=== PATIENT | female | born 1970 | race African-American/Black ===

== ENCOUNTER 2018-05-03 11:41 | Emergency (ER) | payer OTHER, SELFPAY ==
[2018-05-03] MEDS ORDERED: Ketorolac Tromethamine 30 MG/ML VIAL ONE (12:19)
[2018-05-03 12:33] LABS: #Basophils 0.1 thou/uL (0.0-0.2); #Eosinphils 0.1 thou/uL (0.0-0.7); #Lymphocytes 2.5 thou/uL (1.20-3.40); #Monocytes 0.6 thou/uL (0.11-0.59); #Neutrophils 5.4 thou/uL (1.40-6.50); %Basophils 0.7 % (0.0-1.0); %Lymphocytes 28.6 % (21.0-51.0); %Monocytes 7.4 % (0.0-10.0); %Neutrophils 62.4 % (42.0-75.0); Hemoglobin 14.9 g/dL (12.0-16.0); Mean Corpuscular HGB CONC 33.5 g/dL (32.0-36.0); Mean Corpuscular Hemoglobin 31.6 pg (27.0-31.0); Mean Corpuscular Volume 94.4 fL (78.0-98.0); Mean Platelet Volume 8.8 fL (7.4-10.4); Platelet Count 232 thou/uL (130-400); RBC Distribution Width 12.3 % (11.5-14.5); Red Blood Cell (RBC) Count 4.71 mill/uL (4.20-5.40); White Blood Cell (WBC) Count 8.6 thou/uL (4.8-10.8)
--- NOTE | 2018-05-03 12:38 | RAD ---
PORTABLE CHEST: Date: 05-03-18 Provided Clinical History: Chest pain. FINDINGS: Comparison 10-27-12. Cardiac silhouette appears prominent which is likely at least partially on the basis of portable tech nique. Bibasilar subsegmental atelectatic changes are seen. No focal consolidation, pleural fluid or pneumothorax apparent. IMPRESSION: No evidence for acute cardiopulmonary process. POS: [facility]
[2018-05-03 12:47] LABS: ALT (SGPT) 19 U/L (8-55); AST (SGOT) 22 U/L (5-34); Albumin 3.8 g/dL (3.5-5.0); Alkaline Phosphatase 48 U/L (40-150); Anion Gap 13 mmol/L (10-20); BUN (Urea Nitrogen) 9 mg/dL (7.0-18.7); Bilirubin, Total 0.2 mg/dL (0.2-1.2); CK (CPK) 127 U/L (29-168); Calc. Creatinine Clearance 0 mL/min (70-130); Calcium 8.9 mg/dL (7.8-10.44); Carbon Dioxide 23 mmol/L (22-29); Chloride 105 mmol/L (98-107); Estimated GFR-MDRD Greater than 90; Glucose 84 mg/dL (70-105); Potassium 3.9 mmol/L (3.5-5.1); Protein, Total 6.8 g/dL (6.0-8.3); Sodium 137 mmol/L (136-145)
[2018-05-03 13:28] LABS: BHCG - Serum Negative (NEGATIVE); Pregs Control Background? CLEAR/WHITE (CLR/WHITE); Pregs Control Bar Appear? YES (CONTROL BAR)
== END 2018-05-03 13:50 | disposition home or self-care (01) ==
LOC: ERS 11:41
DX: R07.9 Chest pain, unspecified (principal); F17.210 Nicotine dependence, cigarettes, uncomplicated
CPT/HCPCS: 36415; 71045; 80053; 82550; 84484; 84703; 85025; 93005; 94760; 96372; J1885

== ENCOUNTER 2018-07-04 07:15 | Outpatient (CLI) | payer OTHER ==
--- NOTE | 2018-07-04 09:12 | CT ---
CT THORAX WITH CONTRAST: 07/04/2018 HISTORY: A 48-year-old female with R22.9, localized skin mass, lump, or swelling. TECHNIQUE: An external marker was placed at the site of the palpable lump, in the left anterior upper chest. IV iodinated contrast media: [id number]. COMPARISON: None. FINDINGS: The external marker is adjacent to a cluster of mildly dilated, tortuous, superficial blood vessels i n the subcutaneous fat, anterior to the upper portion of the left pectoralis muscles, along the super ior edge of the left breast(similar finding is noted on the contralateral right side). There is no e vidence of a focal tumor mass in this location. The lungs are clear. No pleural effusion or pneumot horax. No evidence of destructive osseous lesion. Normal thoracic aorta. No pericardial effusion, mediastinal lymphadenopathy, or hilar lymphadenopathy. IMPRESSION: 1. The palpable lump corresponds to a cluster of dilated, tortuous blood vessels in the subcutaneous fat. 2. Otherwise normal chest. JANELL Hendrickson POS: [facility]
[2018-07-04] MEDS ORDERED: Iopamidol 370 76% 100 ML VIAL ONE (11:59)
== END 2018-07-04 07:16 | disposition home or self-care (01) ==
LOC: BICCT 07:15 → EDSTATUS 13:30
PROVIDERS: ATTEND Family Medicine
DX: R22.2 Localized swelling, mass and lump, trunk (principal); I99.8 Other disorder of circulatory system
CPT/HCPCS: 71260; Q9967